=== PATIENT | male | born 1980 | race American Indian/Alaskan Native ===

== ENCOUNTER 2017-06-09 20:40 | Emergency (ER) | payer OTHER ==
[2017-06-09] MEDS: CEPHALEXIN 500 MG CAP PO (22:58)
== END 2017-06-09 23:03 | disposition home or self-care (01) ==
LOC: M ED 20:40
DX: L03.114 Cellulitis of left upper limb (principal); F17.200 Nicotine dependence, unspecified, uncomplicated
CPT/HCPCS: 99283

== ENCOUNTER → 2019-09-06 | Outpatient (CLI) | payer OTHER ==
[~2019-09-06] MED LIST: KEFL500C17 PO
--- NOTE | 2019-09-06 16:32 | REP ---
Clinical: Midline posterior upper back pain with palpable mass. Technique: Axial noncontrast images from the skull base to the thoracic inlet with coronal and sagittal re-formations. Findings: There is mild/moderate multilevel degenerative changes including endplate sclerosis, marginal osteophytosis, and disc space narrowing primarily involving the cervical spine to the C6-7 level. Alignment is essentially maintained and there is no evidence for acute fracture / compression injury or subluxation. Old fracture involving the T1 spinous process is noted. The posterior elements and spinous processes as well as the bilateral neural foramen appear otherwise patent and grossly normal. Evaluation of the surrounding soft tissue structures demonstrates a moderately prominent amount of subcutaneous fat insinuating midline between the trapezius and paraspinous musculature from the C6 level to the T1-2 level which is nonspecific and likely incidental without clinical significance. This insinuating fat deposition may represent lipomatous changes although no discrete focal encapsulation is appreciated and no significant associated soft tissue abnormalities or mass lesions are otherwise identified. Impression: Nonspecific findings as described above. Electronically Signed by Xavier Monreal MD 09/06/2019 04:23 P
== END ==
LOC: M RAD 09:06
PROVIDERS: ATTEND Physician Assistant
DX: M54.6 Pain in thoracic spine (principal)